=== PATIENT | female | born 1960 | race Caucasian/White ===

== ENCOUNTER 2023-11-08 06:20 | Day surgery (SDC) | payer OTHER ==
[2023-11-08] MEDS ORDERED: Ringers Lactate 1,000 ML IV ONE (06:58)
[2023-11-08] MEDS ORDERED: NS 0.9% VIAL 20 ML ONE (08:01)
[2023-11-08] MEDS: CEFAZOLIN SODIUM 1 GM/VIAL ONE (08:15)
[2023-11-08] MEDS ORDERED: MIDAZOLAM HCL 2 MG/2 ML INJ ONE (08:17)
[2023-11-08] MEDS: HEPARIN 5000 UNIT/ML 1 ML VIAL ONE (08:17)
[2023-11-08] MEDS ORDERED: FENTANYL CITR 100 MCG/2 ML ONE (08:17)
[2023-11-08] MEDS ORDERED: LIDOCAINE 2% MPF 5 ML VIAL ONE (08:17)
[2023-11-08] MEDS ORDERED: propofoL 200 MG/20 ML VIAL IV ONE (08:17)
[2023-11-08] MEDS ORDERED: SUCCINYLCHOLINE 20 MG/ML (10 ML) IV ONE (08:23)
[2023-11-08] MEDS ORDERED: EPHEDRINE SULF 50 MG/ML VIAL ONE (08:51)
[2023-11-08] MEDS ORDERED: dexAMETHasone 4 MG/ML VIAL ONE (09:14)
[2023-11-08] MEDS ORDERED: ONDANSETRON 4 MG/2 ML VIAL ONE (09:14)
--- NOTE | 2023-11-08 09:26 | P.BOP ---
Preoperative diagnosis: colorectal cancer, chemotx Postoperative diagnosis: same Primary procedure: 1. Placement of Portacath Secondary procedure: 2. Interpretation of fluoroscopy Other procedure(s): 3. Left neck ultrasound Estimated blood loss: <1cc Specimen: none Findings: as above Anesthesia: General Implants: single lumen portacath left subclavian Transferred to: Recovery Room Condition: Good
[2023-11-08] MEDS: FENTANYL CITR 100 MCG/2 ML ONE (09:49)
--- NOTE | 2023-11-08 10:06 | RAD REPORT ---
EXAM DESCRIPTION: RAD - Chest Single View - 11/08/2023 10:01 am CLINICAL HISTORY: S/p port a cath insertion Chest pain. COMPARISON: Chest Pa And Lat (2 Views) dated 10/22/2023; CHEST SINGLE VIEW dated 11/29/2007; CHEST PA A ND LAT 2 VIEW dated 11/17/2007 FINDINGS: Portable technique limits examination quality. Left-sided port catheter is in place with tip in the SVC. No postprocedure pneumothorax. Mild interst itial prominence is present bilaterally. The heart is upper limit normal in size. IMPRESSION: No postprocedure pneumothorax is seen.
[2023-11-08] MEDS: CODEINE 30MG/APAP 300MG TAB ONE (10:37)
--- NOTE | 2023-11-08 11:06 | RAD REPORT ---
EXAM DESCRIPTION: RAD - Fluoroscopy <1 Hour - 11/08/2023 11:02 am CLINICAL HISTORY: Venous catheter insertion. PORT A CATH INSERTION- LEFT SIDE COMPARISON: US. GUIDANCE FOR NDL PLACE. dated 06/10/2011 FINDINGS: Fluoroscopic imaging is submitted from placement of a venous catheter. Details of the pro cedure not available. Fluoroscopy time: 0.5 minutes
[2023-11-08 11:25] VITALS: BP 144/74; TEMP 97; O2SAT 98
--- NOTE | 2023-11-08 14:51 | EKG ---
Test Date: 2023-11-08 Test Time: 06:48:39 Cell Operation Supervisor: ISIDRA MEASUREMENT RESULTS: Intervals: Rate: 70 MI: 140 QRSD: 84 QT: 376 QTc: 406 [place]: P: 65 MI: 140 QRS: 50 T: 56 INTERPRETIVE STATEMENTS: Normal sinus rhythm Normal ECG Compared to ECG 11/17/2007 06:04:41 No significant changes Electronically Signed On 11-08-23 14:50:28 CDT by Anthony Naranjo
--- NOTE | 2023-11-08 20:20 | OP ---
Date of Procedure: 11/08/2023 Surgeon: Landon Rossi MD Preoperative Diagnosis: Colorectal cancer, in need of chemotherapy. Postoperative Diagnosis: Colorectal cancer, in need of chemotherapy. Procedures: 1.Placement of a Port-A-Cath, left subclavian vein. 2.Interpretation of fluoroscopy. 3.Right neck and subclavian ultrasound. Estimated Blood Loss: Less than 1 cc. Specimen: None. Findings: A compressible venous system. Anesthesia: General plus local. Implant: A single-lumen Port-A-Cath. Indications: This is the case of a 63-year-old patient in need of chemotherapy, so she was sent to m y office for placement of a Port-A-Cath. The benefits, alternatives, and risks of placement of Port- A-Cath fully explained, which include, but not limited to, infection, bleeding, damage to adjacent st ructures, anesthesia complication, pneumothorax, hemothorax, pericardiac tamponade, breaking of the c atheter, endocarditis, PE, DVT, ID, and even . She also understands this may not relieve any sy mptoms. She might need more than one surgical intervention. She understands the importance of maint enance, importance of making sure it is flushed properly and she was advised to follow up with the [facility] and if she is not using the Port-A-Cath to remove the Port-A-Cath as soon as possible. She understood, signed a consent. Description Of Procedure: The patient was brought to the operating room, placed in supine position. Anesthesia was done without complication. A time-out was called. Left chest and neck were prepped and draped in a sterile fashion. The patient was placed in Trendelenburg position. After the area w as prepped and draped in a sterile fashion, we proceeded to do an ultrasound to make sure we had viab le blood vessels. Subclavian and veins seemed to be viable. At that moment, we introduced an 18-gau ge needle with the patient in Trendelenburg position and after time-out in the left subclavian base o f the first attempt, guidewire was passed through using fluoroscopy and guided into superior vena cav a. A dilator was placed under fluoroscopy and a catheter was placed in and an introducer kit was rem stuart. We made an incision in the left upper chest and created a pocket and then we tunneled this cat heter underneath the skin to meet that new incision. We cut it to proper size and connected that to the Port-A-Cath using the power cutting machine operator's specification and secured it in place with 3-0 chromic. Wou nds once again checked with the fluoroscopy. We made sure proper placement. Then, the subcutaneous tissue was closed with 3-0 chromic and Steri-Strip was placed on top. Patient brought back to normal position. Patient was sent to recovery room in stable condition. JYOTHI/JUANY Voice ID: [id number] Report ID: [id number]
--- NOTE | 2023-11-08 20:50 | DS ---
Date of Discharge: 11/08/2023 Diagnosis: Colorectal cancer, chemotherapy planned. Procedure: Placement of Port-A-Cath, interpretation of fluoroscopy, left neck ultrasound and left mcnally bclavian ultrasound. Disposition: Home. Activity: As tolerated. No heavy lifting. Plan: Follow up in my office in 1 week. Call for appointment at [phone]. Keep area dry for 48 phan rs, then may shower. Keep Steri-Strips intact. Patient will have an x-ray before leaving and review . JYOTHI/JUANY Voice ID: [id number] Report ID: [id number]
== END 2023-11-08 11:05 | disposition home or self-care (01) ==
LOC: OR 06:20
PROVIDERS: ATTEND Surgery
PROC: 0JH60WZ Insertion of Totally Implantable Vascular Access Device into Chest Subcutaneous Tissue and Fascia, Open Approach (ICD-10-PCS; principal; 2023-11-08 08:30)
DX: C21.1 Malignant neoplasm of anal canal (principal); I10 Essential (primary) hypertension; E78.00 Pure hypercholesterolemia, unspecified; G47.30 Sleep apnea, unspecified; E05.90 Thyrotoxicosis, unspecified without thyrotoxic crisis or storm
CPT/HCPCS: 93005; 71045; 76000; 36561; J1644 ×2; A4216; J2704; J1100; J2001; J2250; J3010 ×2; J2405; J7120; J0690

== ENCOUNTER 2024-06-28 08:24 | Day surgery (SDC) | payer BC ==
--- NOTE | 2024-06-28 08:48 | RAD REPORT ---
EXAMINATION: TWO VIEW CHEST XR CLINICAL INDICATION: Pre-op pending removal of port-a-cath TECHNIQUE: 2 views of the chest was performed. COMPARISON: 11/08/2023 FINDINGS: The lungs are well inflated and clear. The heart is normal in size. No displaced fractures evident. L eft-sided port catheter is tip in SVC. IMPRESSION: No acute or significant abnormalities.
[2024-06-28] MEDS: Ringers Lactate 1,000 ML IV ONE (09:00)
[2024-06-28] MEDS ORDERED: ONDANSETRON 4 MG/2 ML VIAL ONE (09:47)
[2024-06-28] MEDS ORDERED: LIDOCAINE 2% MPF 5 ML VIAL ONE (09:47)
[2024-06-28] MEDS ORDERED: FENTANYL CITR 100 MCG/2 ML ONE (09:47)
[2024-06-28] MEDS ORDERED: propofoL 200 MG/20 ML VIAL IV ONE (09:47)
[2024-06-28] MEDS ORDERED: CEFAZOLIN SODIUM 1 GM/VIAL ONE (09:56)
[2024-06-28] MEDS ORDERED: dexAMETHasone 4 MG/ML VIAL ONE (09:56)
[2024-06-28] MEDS ORDERED: EPHEDRINE SULF 50 MG/ML VIAL ONE (09:57)
--- NOTE | 2024-06-28 10:19 | P.BOP ---
Preoperative diagnosis: colorectal cancer Postoperative diagnosis: same Primary procedure: Removal of portacath Estimated blood loss: <10cc Specimen: intact portacath Findings: as above Anesthesia: General Complications: None Transferred to: Recovery Room Condition: Good
--- NOTE | 2024-06-28 11:27 | EKG ---
Test Date: 2024-06-28 Test Time: 09:11:54 Vp Information Technology: BENNETT MEASUREMENT RESULTS: Intervals: Rate: 79 ME: 136 QRSD: 78 QT: 366 QTc: 419 [place]: P: 72 ME: 136 QRS: 69 T: 72 INTERPRETIVE STATEMENTS: Normal sinus rhythm Normal ECG Compared to ECG 11/08/2023 06:48:39 No significant changes Electronically Signed On 06-28-24 11:26:59 BUSINESS PROCESS SPECIALIST by Kiet Ram
[2024-06-28 13:10] VITALS: BP 124/80; O2SAT 94
[2024-06-28 13:13] VITALS: TEMP 97
--- NOTE | 2024-06-28 22:49 | OP ---
Date of Procedure: 06/28/2024 Surgeon: Landon Rossi MD Preoperative Diagnosis: Colorectal cancer. Postoperative Diagnosis: Colorectal cancer. Procedure: Removal of Port-A-Cath. Estimated Blood Loss: Less than 10 cc. Specimen: Intact Port-A-Cath. Anesthesia: General plus local. Indication: This is the case of a 64-year-old patient with no need for Port-A-Cath anymore since she finished her chemotherapy. The benefits, alternatives, and risks of removal were fully explained, w hich included, but not limited to, infection, bleeding, damage to adjacent structures, anesthesia com plication, PE, [place], and even . She also understands this may not relieve symptoms. She might ne ed more than one surgical intervention. She understood and signed a consent. Procedure In Detail: The patient was brought to the operating room, placed in supine position. Anes thesia was done without complication. Time-out was called. Left chest was prepped and draped in a s terile fashion. Incision was made where the patient had Port-A-Cath. Port-A-Cath was identified, re leased from the subcutaneous tissue, and pulled by gentle traction putting pressure on the insertion site for about 10 to 15 minutes. Port-A-Cath came out intact. The subcutaneous tissue was closed wi th 3-0 chromic and the skin in a subcuticular fashion with 3-0 chromic and Steri-Strips on top. Spon ge count and instrument counts were correct. The patient tolerated procedure well. The patient was sen t to recovery in stable condition. JYOTHI/JUANY Voice ID: [id number] Report ID: [id number]
--- NOTE | 2024-06-28 22:54 | DS ---
Date of Discharge: 06/28/2024 Diagnosis: Colorectal cancer. Procedure: Removal of Port-A-Cath. Condition: Stable. Disposition: Home. Activity: As tolerated. No heavy lifting. Discharge Instructions: Follow up in my office in 1 week. Call for appointment [phone]. Keep area dry for 48 hours, then may shower. Keep Steri-Strips intact. JYOTHI/JUANY Voice ID: [id number] Report ID: [id number]
== END 2024-06-28 11:48 | disposition home or self-care (01) ==
LOC: OR 08:24
PROVIDERS: ATTEND Surgery
PROC: 0JPT0WZ Removal of Totally Implantable Vascular Access Device from Trunk Subcutaneous Tissue and Fascia, Open Approach (ICD-10-PCS; principal; 2024-06-28 10:15)
DX: Z85.038 Personal history of other malignant neoplasm of large intestine (principal); Z92.21 Personal history of antineoplastic chemotherapy
CPT/HCPCS: 93005; 88300; 71046; 36590; J2704; J1100; J2003; J3010; J2405; J7120; J0690

== ENCOUNTER 2025-01-16 00:21 | Emergency (ER) | payer BC ==
--- OUTSIDE RECORDS SUMMARY | 2025-01-16 00:26 | XMS REPORT | Continuity of Care Document ---
Author Name Unknown Address [address] [facility] [address] [place] [address] Organization [facility] [place] Address [address] [facility] [address] [place] [address] Care Team Providers Care [employer] Paralegal Name Role Phone Seda Valdez Attending Clinician Unavailable Jett Garcia Attending Clinician Unavailable Elaine Viera Attending Clinician Unavailable Payers Payer Name Policy Type Policy Number Effective Date Expirati on Date Source ENTRUST CLAIMS TEAM [id number] [facility] Problems Condition Name Condition Details Condition Category Status Onset Date Resolution Date Last Treatment Date Treating Clinician Comments Source Cigarette smoker Cigarette smoker Problem [facility] 391126223 Status post arthroscop y of left knee Problem [facility] [id number] Pain, joint, knee, left Problem [facility] [id number] Complex tear of medial meniscus of left knee as current injury, initial encounter Problem [facility] Hypothyroi dism Hypothyroi dism, adult Problem [facility] [id number] Obstructiv e sleep apnea syndrome Problem [facility] 04637084 Essential (primary) hypertensi on Problem [facility] 369427220 Prediabete s Problem [facility] 377935861 Mixed hyperlipid emia Problem [facility] 813471856 Tobacco abuse counseling Problem [facility] 864154096 Abnormal renal function test Problem [facility] 58840102 Hyperglyce zander Problem [facility] [id number] RLS (restless legs syndrome) Problem 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 Nutritiona l anaemia Other specified nutritiona l anemias Problem [facility] Hyperlipid emia Other hyperlipid emia Problem 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 Social History Social Habit Start Date Stop Date Quantity Comments Source History of Tobacco Use [facility] Sex Assigned At [facility] Smoking Status Start Date Stop Date Source Never Smoker [facility] Current Smoker 2024-02-17 00:00:00 [facility] Medications Ordered Medication Name Filled Medication Name Start Date Stop Date Current Medication? Ordering Clinician Indication Dosage Frequency Signature (SIG) Comments Components Source Levothyroxi ne Sodium 137 MCG Levothyroxi ne Sodium 137 MCG 02-17 00:00: 00 No QD Levothyrox ine Sodium 137 MCG Rosuvastati n Calcium 20 mg Rosuvastati n Calcium 20 mg No 1{table t} BID Rosuvastat in Calcium 20 mg Lisinopril 10 MG Lisinopril 10 MG No 1{table t} QD Lisinopril 10 MG Immunizations Ordered Immunization Name Filled Immunization Name Date Status Comments Source FluAD FluAD Unknown Completed [facility] FluAD FluAD Unknown Completed [facility] Flu[facility] FluAD Unknown Completed [facility] Flu[facility] FluAD Unknown Completed [facility] Flu[facility] FluAD Unknown Completed [facility] Flu[facility] FluAD Unknown Completed [facility] Flu[facility] FluAD Unknown Completed [facility] Flu[facility] FluAD Unknown Completed [facility] FluAD FluAD Unknown Completed [facility] FluAD FluAD Unknown Completed [facility] FluAD FluAD Unknown Completed [facility] FluAD FluAD Unknown Completed [facility] Vital Signs Vital Name Observation Time Observation Value Comments Sergo martínez height 2024-10-09 15:00:00 64 [in_i] Com[facility] n [facility] weight 2024-10-09 15:00:00 191.6 [lb_av] Co mmon [facility] temperature 2024-10-09 15:00:00 98.2 [degF] Com [facility] bmi 2024-10-09 15:00:00 32.88 kg/m2 Comm on [facility] oximetry 2024-10-09 15:00:00 96 % [facility] respiratory rate 2024-10-09 15:00:00 16 /min [facility] blood pressure systolic 2024-10-09 15:00:00 132 mm[Hg] Common [facility] blood pressure diastolic 2024-10-09 15:00:00 78 mm[Hg] Common [facility] height 2024-06-09 10:40:00 64 [in_i] Commo n [facility] weight 2024-06-09 10:40:00 184 [lb_av] Comm on [facility] temperature 2024-06-09 10:40:00 97.7 [degF] Com [facility] bmi 2024-06-09 10:40:00 31.58 kg/m2 Comm on [facility] oximetry 2024-06-09 10:40:00 98 % [facility] respiratory rate 2024-06-09 10:40:00 16 /min [facility] blood pressure systolic 2024-06-09 10:40:00 135 mm[Hg] [facility] diastolic 2024-06-09 10:40:00 71 mm[Hg] [facility] height 2024-02-17 16:20:00 64 [in_i] Commo n [facility] weight 2024-02-17 16:20:00 180 [lb_av] Comm on [facility] bmi 2024-02-17 16:20:00 30.89 kg/m2 Comm on [facility] height 2024-02-07 14:40:00 64 [in_i] Commo n [facility] weight 2024-02-07 14:40:00 180.0 [lb_av] Co mmon [facility] temperature 2024-02-07 14:40:00 97.7 [degF] Com mon [facility] bmi 2024-02-07 14:40:00 30.89 kg/m2 Comm on [facility] oximetry 2024-02-07 14:40:00 97 % [facility] respiratory rate 2024-02-07 14:40:00 15 /min [facility] blood pressure systolic 2024-02-07 14:40:00 119 mm[Hg] [facility] blood pressure diastolic 2024-02-07 14:40:00 74 mm[Hg] Common [facility] height 2023-10-06 10:00:00 64 [in_i] Commo n [facility] weight 2023-10-06 10:00:00 198.8 [lb_av] Co mmon [facility] temperature 2023-10-06 10:00:00 98.1 [degF] Com [facility] bmi 2023-10-06 10:00:00 34.12 kg/m2 Comm on [facility] oximetry 2023-10-06 10:00:00 99 % [facility] respiratory rate 2023-10-06 10:00:00 16 /min Common [facility] height 2023-06-29 11:40:00 64 [in_i] Commo n [facility] weight 2023-06-29 11:40:00 190 [lb_av] Comm on [facility] bmi 2023-06-29 11:40:00 32.61 kg/m2 Comm on [facility] height 2023-03-29 14:20:00 64 [in_i] Commo n [facility] weight 2023-03-29 14:20:00 189.2 [lb_av] Co mmon [facility] temperature 2023-03-29 14:20:00 98.1 [degF] Com mon [facility] bmi 2023-03-29 14:20:00 32.47 kg/m2 Comm on [facility] oximetry 2023-03-29 14:20:00 95 % [facility] respiratory rate 2023-03-29 14:20:00 16 /min Common [facility] blood pressure systolic 2023-03-29 14:20:00 131 mm[Hg] [facility] blood pressure diastolic 2023-03-29 14:20:00 70 mm[Hg] [facility] height 2022-09-22 16:00:00 64 [in_i] Commo n [facility] weight 2022-09-22 16:00:00 189.6 [lb_av] Co mmon [facility] temperature 2022-09-22 16:00:00 98.2 [degF] Com mon [facility] bmi 2022-09-22 16:00:00 32.54 kg/m2 Comm on [facility] oximetry 2022-09-22 16:00:00 95 % Commo [facility] respiratory rate 2022-09-22 16:00:00 16 /min Common [facility] blood pressure systolic 2022-09-22 16:00:00 131 mm[Hg] [facility] blood pressure diastolic 2022-09-22 16:00:00 73 mm[Hg] [facility] height 2022-08-24 15:00:00 64 [in_i] Commo n [facility] weight 2022-08-24 15:00:00 194 [lb_av] Comm on [facility] temperature 2022-08-24 15:00:00 98.2 [degF] Com [facility] bmi 2022-08-24 15:00:00 33.3 kg/m2 Commo [facility] blood pressure systolic 2022-08-24 15:00:00 132 mm[Hg] [facility] blood pressure diastolic 2022-08-24 15:00:00 76 mm[Hg] Common [facility] height 2022-07-23 08:00:00 64 [in_i] Commo n [facility] weight 2022-07-23 08:00:00 194 [lb_av] Comm on [facility] temperature 2022-07-23 08:00:00 97.8 [degF] Com [facility] bmi 2022-07-23 08:00:00 33.3 kg/m2 Commo [facility] blood pressure systolic 2022-07-23 08:00:00 130 mm[Hg] [facility] blood pressure diastolic 2022-07-23 08:00:00 80 mm[Hg] [facility] height 2022-07-23 16:00:00 64 [in_i] Commo n [facility] weight 2022-07-23 16:00:00 197.4 [lb_av] Co mmon [facility] temperature 2022-07-23 16:00:00 97.2 [degF] Com [facility] bmi 2022-07-23 16:00:00 33.88 kg/m2 Comm on [facility] oximetry 2022-07-23 16:00:00 98 % Commo [facility] respiratory rate 2022-07-23 16:00:00 17 /min Common [facility] blood pressure systolic 2022-07-23 16:00:00 132 mm[Hg] Common [facility] blood pressure diastolic 2022-07-23 16:00:00 80 mm[Hg] [facility] height 2022-07-13 08:30:00 64 [in_i] Commo n [facility] weight 2022-07-13 08:30:00 193.6 [lb_av] Co mmon [facility] temperature 2022-07-13 08:30:00 97.6 [degF] Com [facility] bmi 2022-07-13 08:30:00 33.23 kg/m2 Comm on [facility] blood pressure systolic 2022-07-13 08:30:00 128 mm[Hg] Common [facility] blood pressure diastolic 2022-07-13 08:30:00 82 mm[Hg] [facility] height 2022-01-06 16:00:00 64 [in_i] Commo n [facility] weight 2022-01-06 16:00:00 196 [lb_av] Comm on [facility] temperature 2022-01-06 16:00:00 97.0 [degF] Com [facility] bmi 2022-01-06 16:00:00 33.64 kg/m2 Comm on [facility] oximetry 2022-01-06 16:00:00 97 % Commo [facility] respiratory rate 2022-01-06 16:00:00 16 /min Common [facility] blood pressure systolic 2022-01-06 16:00:00 114 mm[Hg] Common [facility] blood pressure diastolic 2022-01-06 16:00:00 67 mm[Hg] [facility] height 2021-07-09 16:00:00 64 [in_i] Commo n [facility] weight 2021-07-09 16:00:00 189 [lb_av] Comm on [facility] temperature 2021-07-09 16:00:00 97.9 [degF] Com mon [facility] bmi 2021-07-09 16:00:00 32.44 kg/m2 Comm on [facility] oximetry 2021-07-09 16:00:00 99 % Commo [facility] respiratory rate 2021-07-09 16:00:00 18 /min Common [facility] blood pressure systolic 2021-07-09 16:00:00 114 mm[Hg] Common [facility] blood pressure diastolic 2021-07-09 16:00:00 54 mm[Hg] Common [facility] height 2021-01-06 16:20:00 64 [in_i] Commo n [facility] weight 2021-01-06 16:20:00 194.4 [lb_av] Co mmon [facility] temperature 2021-01-06 16:20:00 98.1 [degF] Com mon [facility] bmi 2021-01-06 16:20:00 33.37 kg/m2 Comm on [facility] oximetry 2021-01-06 16:20:00 96 % Commo [facility] respiratory rate 2021-01-06 16:20:00 18 /min Common [facility] blood pressure systolic 2021-01-06 16:20:00 136 mm[Hg] [facility] blood pressure diastolic 2021-01-06 16:20:00 84 mm[Hg] [facility] Encounters Start Date/Time End Date/Time Encounter Type Admission Type Attending Clinicians Care Facility Care Department Encounter ID Source 2024-06-08 08:50:00 Outpatient Seda ValdezLMLC STLMLC [id number] [facility] 2024-05-31 08:54:00 Outpatient Seda Valdez STLMLC STLMLC [id number] [facility] 2023-11-17 13:54:00 Outpatient Seda Valdez STLMLC STL[facility] [id number] [facility] 2023-10-05 13:20:00 Outpatient Seda Valdez STLMLC STLMLC [id number] [facility] 2022-07-28 09:28:01 Outpatient Seda Valdez STLMLC ST[facility] [id number] [facility] 2022-07-22 12:56:01 Outpatient Seda Valdez STLMLC STLMLC [id number] [facility] 2022-07-13 09:33:01 Outpatient Seda Valdez STLMLC STLMLC [id number] [facility] 2022-07-09 08:37:01 Outpatient Seda Valdez STLMLC STLMLC [id number] [facility] 2022-01-02 09:19:01 Outpatient Seda Valdez STLMLC STLMLC [id number] [facility] 2021-07-07 10:03:01 Outpatient Seda Valdez STLMLC STLMLC [id number] [facility] 2021-06-18 13:37:42 Outpatient Seda Valdez STLMLC STLML[facility] [id number] [facility] 2021-06-18 12:17:31 Outpatient Seda Valdez STLMLC STLMLC [id number] [facility] 2021-06-18 11:58:50 Outpatient Jett Garcia STLMLC STLMLC [id number] [facility] 2021-06-18 11:10:13 Outpatient Elaine Viera STLMLC STLMLC [id number] [facility] 2021-06-18 11:04:59 Outpatient Elaine Viera STLMLC STLMLC [id number] [facility] 2024-10-31 00:00:00 2024-10-31 00:00:00 (TEL) STLMLC STLMLC [id number] [facility] 2024-10-09 00:00:00 2024-10-09 00:00:00 OFFICE VISIT ESTAB PT LEVEL [id number] [facility] 2024-07-26 00:00:00 2024-07-26 00:00:00 (TEL) STLMLC STLMLC [id number] [facility] 2024-06-16 00:00:00 2024-06-16 00:00:00 (TEL) STLMLC STLMLC [id number] [facility] 2024-06-09 00:00:00 2024-06-09 00:00:00 (WELLNESS) Wellness Visit STLMLC STLMLC [id number] [facility] 2024-06-06 00:00:00 2024-06-06 00:00:00 (TEL) STLMLC STLMLC [id number] [facility] 2024-05-31 00:00:00 2024-05-31 00:00:00 (TEL) STLMLC STLMLC [id number] [facility] 2024-05-03 00:00:00 2024-05-03 00:00:00 (TEL) STLMLC STLMLC [id number] [facility] 2024-04-27 00:00:00 2024-04-27 00:00:00 (TEL) STLMLC STLMLC [id number] [facility] 2024-04-06 00:00:00 2024-04-06 00:00:00 (TEL) STLMLC STLMLC [id number] [facility] 2024-02-29 00:00:00 2024-02-29 00:00:00 (TEL) STLMLC STLMLC [id number] [facility] 2024-02-17 00:00:00 2024-02-17 00:00:00 OFFICE VISIT ESTAB PT LEVEL [id number] [facility] 2024-02-16 00:00:00 2024-02-16 00:00:00 (TEL) STLMLC STLMLC [id number] [facility] 2024-02-07 00:00:00 2024-02-07 00:00:00 OFFICE VISIT ESTAB PT LEVEL [id number] [facility] 2023-10-11 00:00:00 2023-10-11 00:00:00 (TEL) STLMLC STLMLC [id number] [facility] 2023-10-07 00:00:00 2023-10-07 00:00:00 (TEL) STLMLC STLMLC [id number] [facility] 2023-10-06 00:00:00 2023-10-06 00:00:00 OFFICE VISIT ESTAB PT LEVEL [id number] [facility] 2023-09-30 00:00:00 2023-09-30 00:00:00 (TEL) STLMLC STLMLC [id number] [facility] 2023-06-29 00:00:00 2023-06-29 00:00:00 OFFICE VISIT ESTAB PT LEVEL [id number] [facility] 2023-06-11 00:00:00 2023-06-11 00:00:00 (TEL) STLMLC STLMLC [id number] [facility] 2023-04-02 00:00:00 2023-04-02 00:00:00 (TEL) STLMLC STLMLC [id number] [facility] 2023-03-29 00:00:00 2023-03-29 00:00:00 OFFICE VISIT ESTAB PT LEVEL [id number] [facility] 2023-02-23 00:00:00 2023-02-23 00:00:00 (TEL) STLMLC STLMLC [id number] [facility] 2022-09-22 00:00:00 2022-09-22 00:00:00 OFFICE VISIT ESTAB PT LEVEL [id number] [facility] 2022-08-24 00:00:00 2022-08-24 00:00:00 NON-BILLAB LE VISIT STLMLC STLMLC [id number] [facility] 2022-08-12 00:00:00 2022-08-12 00:00:00 (TEL) STLMLC STLMLC [id number] [facility] 2022-08-10 00:00:00 2022-08-10 00:00:00 (TEL) STLMLC STLMLC [id number] [facility] 2022-07-29 00:00:00 2022-07-29 00:00:00 (TEL) STLMLC STLMLC [id number] [facility] 2022-07-24 00:00:00 2022-07-24 00:00:00 (TEL) STLMLC STLMLC [id number] [facility] 2022-07-23 00:00:00 2022-07-23 00:00:00 (TEL) STLMLC STLMLC [id number] [facility] 2022-07-23 00:00:00 2022-07-23 00:00:00 (F/U) Follow Up Visit STLMLC STLMLC [id number] [facility] 2022-07-23 00:00:00 2022-07-23 00:00:00 OFFICE VISIT ESTAB PT LEVEL [id number] [facility] 2022-07-13 00:00:00 2022-07-13 00:00:00 OFFICE VISIT NEW PT LEVEL [id number] [facility] 2022-06-24 00:00:00 2022-06-24 00:00:00 (TEL) STLMLC STLMLC [id number] [facility] 2022-01-06 00:00:00 2022-01-06 00:00:00 OFFICE VISIT ESTAB PT LEVEL [id number] [facility] 2021-07-14 00:00:00 2021-07-14 00:00:00 (TEL) STLMLC STLMLC [id number] [facility] 2021-07-09 00:00:00 2021-07-09 00:00:00 OFFICE VISIT ESTAB PT LEVEL [id number] [facility] 2021-01-08 00:00:00 2021-01-08 00:00:00 (TEL) STLMLC STLMLC [id number] [facility] 2021-01-06 00:00:00 2021-01-06 00:00:00 OFFICE VISIT EST PT LEVEL [id number] [facility] 2020-07-08 00:00:00 2020-07-08 00:00:00 Outpatient [facility]LMLC [facility]LMLC [id number] [facility] 2020-04-24 00:00:00 2020-04-24 00:00:00 Outpatient [facility]MLC [facility]LMLC [id number] [facility] 2020-03-22 00:00:00 2020-03-22 00:00:00 Outpatient [facility]C [facility]LMLC [id number] [facility] 2020-01-09 16:11:00 2020-01-09 16:11:00 Outpatient [facility] [id number] [facility] 2019-12-20 16:00:00 2019-12-20 16:00:00 Outpatient [facility] [id number] [facility] 2019-07-18 16:30:00 2019-07-18 16:30:00 Outpatient [facility] [id number] [facility] 2019-07-05 11:30:00 2019-07-05 11:30:00 Outpatient [facility] [id number] [facility] 2019-06-26 10:45:00 2019-06-26 10:45:00 Outpatient [facility] [id number] [facility] Results Test Description Test Time Test Comments Results Result Co mments Source [id number] 00:00:00* Test Item Value Reference Range Interpretation Comme nts TSH (test code = 3016-3) 0.23 mIU/L See_Comment L [Automated messa ge] The system which generated this result transmitted reference range: 0.40-4.50 mIU/L. The reference range was not used to interpret this result as normal/abnormal.
[2025-01-16] MEDS ORDERED: NA CHLORIDE 0.9% 1,000 ML ONE (01:24)
[2025-01-16 01:45] LABS: Absolute Lymphocytes (CBC) 0.8 K/uL (0.7-4.9); Hematocrit 40.0 % (36.0-45.0); Hemoglobin 13.4 g/dL (12.0-15.0); MCH 29.4 pg (27.0-35.0); MCHC 33.5 g/dL (32.0-36.0); MCV 87.6 fL (80-100); MPV 8.4 fL (7.6-11.3); Nucleated RBC Absolute Count 0.0 (0-0); Nucleated Red Blood Cells % 0.0 % (0-0); RBC Red Blood Cell Count 4.56 M/uL (3.86-4.86); White Blood Count 8.10 thou/uL (4.3-10.9)
[2025-01-16 01:47] LABS: D-Dimer 5.495 FEUug/mL (0-0.500)
[2025-01-16] MEDS ORDERED: ONDANSETRON 4 MG/2 ML VIAL ONE (01:54)
[2025-01-16] MEDS ORDERED: FENTANYL CITR 100 MCG/2 ML ONE ×2 (01:54→05:16)
[2025-01-16 01:55] LABS: AST/SGOT 15 U/L (15-37); Albumin 3.1 g/dL (3.4-5.0); Albumin/Globulin Ratio 0.8 (1.1-1.8); Alkaline Phosphatase 87 U/L (45-117); Anion Gap 9.6 mEq/L (5.0-15.0); BUN Blood Urea Nitrogen 30 mg/dL (7-18); Globulin 4.0 g/dL (2.3-3.5); Glucose Level 132 mg/dL (74-106); Influenza A Ag Negative; Influenza B Ag Negative; Lipase 35 U/L (13-75); Potassium 3.6 mEq/L (3.5-5.1); SARS-CoV-2 Antigen Rapid Res Negative (Negative)
[2025-01-16 01:56] LABS: ALT/SGPT < 14 U/L (13-56)
--- NOTE | 2025-01-16 03:37 | ER ---
Nurse's Notes [facility] Name: Radha Villeda Age: 64 yrs Sex: Female : 1960 Arrival Date: 01/16/2025 Time: 00:21 Bed 16 Private MD: Diagnosis: Pulmonary embolism without acute cor pulmonale-bilateral Presentation: 01/16 00:31 Chief complaint: Patient states: FEVER X3 DAYS AND LUQ PAIN. NO N/V/D. Coronavirus jj7 screen: At this time, the client does not indicate any symptoms associated with coronavirus-19. Ebola Screen: No symptoms or risks identified at this time. Initial Sepsis Screen: Does the patient meet any 2 criteria? No. Patient's initial sepsis screen is negative. Does the patient have a suspected source of infection? No. Patient's initial sepsis screen is negative. Risk Assessment: Do you want to hurt yourself or someone else? Patient reports no desire to harm self or others. Note MOTRIN 600MG \T\2029. Onset of symptoms was January 12, 2025. 00:31 Method Of Arrival: Ambulatory j 00:31 Acuity: KEITH 3 jj7 Triage Assessment: 00:36 General: Appears in no apparent distress. uncomfortable, Behavior is calm, cooperative, jj7 appropriate for age. Pain: Complains of pain in left upper quadrant. Cardiovascular: No deficits noted. Respiratory: Reports shortness of breath WITH COUGHING, SNEEZING the patient has mild shortness of breath. Respiratory: Onset: The symptoms/episode began/occurred SINCE WEDNESDAY. GI: Abd is soft X 4 quads Abdomen is tender to palpation in left upper quadrant. Historical: - Allergies: 00:36 No Known Allergies; jj7 - PMHx: 00:36 RECTAL CANCER; Hypertensive disorder; Hypothyroidism; HYPERLIDIPEMIA; jj7 - PSHx: 00:36 Tonsillectomy; TUBIAL LIGATION; section; CARPAL TUNNEL; LEFT KNEE; RIGHT FOOT; jj7 - Immunization history:: Adult Immunizations not up to date. - Infectious Disease History:: Denies. - Social history:: Smoking status: Patient/guardian denies using tobacco, the patient reports quitting approximately 9 years ago, Patient uses alcohol, but reports only rare drinking. Patient/guardian denies using street drugs, IV drugs. Screenin:30 [facility] ED Fall Risk Assessment (Adult) History of falling in the last 3 months, kt5 including since admission No falls in past 3 months (0 pts) Confusion or Disorientation No (0 pts) Intoxicated or Sedated No (0 pts) Impaired Gait No (0 pts) Mobility Assist Device Used Yes (1 pt) Altered Elimination No (0 pt) Score/Fall Risk Level 0 - 2 = Low Risk Oriented to surroundings, Maintained a safe environment. Abuse screen: Denies threats or abuse. Denies injuries from another. Nutritional screening: No deficits noted. Tuberculosis screening: No symptoms or risk factors identified. Assessment: 01:18 General: tech at bs pcxr. kt5 01:30 General: Appears in no apparent distress. uncomfortable, Behavior is calm, cooperative, kt5 appropriate for age. Pain: Complains of pain in right breast Pain radiates to anterior aspect of right upper chest and mid-sternal area Pain currently is 6 out of 10 on a pain scale. Quality of pain is described as sharp, Pain began gradually, Is continuous. Neuro: No deficits noted. [place] Agitation-Sedation Scale (RASS): 0 - Alert and Calm Level of Consciousness is awake, alert, obeys commands, Oriented to person, place, time, Cardiovascular: Reports chest pain, shortness of breath, Heart tones S1 S2 present Capillary refill < 3 seconds Clubbing of nail beds is absent JVD is absent Pulses are all present. Edema is absent. Rhythm is sinus rhythm Chest pain sharp cp under left breat with sob. Respiratory: Reports shortness of breath on exertion Airway is patent Trachea midline Respiratory effort is even, unlabored, Respiratory pattern is regular, symmetrical, Breath sounds are clear bilaterally. GI: No deficits noted. No signs and/or symptoms were reported involving the gastrointestinal system. Abdomen is flat, non-distended, Bowel sounds present X 4 quads. Abd is soft and non tender X 4 quads. : No deficits noted. No signs and/or symptoms were reported regarding the genitourinary system. EENT: No deficits noted. Derm: No deficits noted. Musculoskeletal: No deficits noted. No signs and/or symptoms reported regarding the musculoskeletal system. 01:44 Reassessment: Patient appears in no apparent distress at this time. Patient is alert, kt5 oriented x 3, equal unlabored respirations, skin warm/dry/pink. Patient states symptoms have improved. 02:11 Reassessment:. kt5 03:18 Reassessment: Patient appears in no apparent distress at this time. Patient is alert, kt5 oriented x 3, equal unlabored respirations, skin warm/dry/pink. Patient denies pain at this time. Patient states feeling better. Patient states symptoms have improved. 04:39 Reassessment: Patient appears in no apparent distress at this time. Patient is alert, kt5 oriented x 3, equal unlabored respirations, skin warm/dry/pink. Patient denies pain at this time. Patient states feeling better. Patient states symptoms have improved. 04:58 General: report a albino rn, all questions answered. kt5 05:20 Reassessment: Patient appears in no apparent distress at this time. No changes from kt5 previously documented assessment. Patient is alert, oriented x 3, equal unlabored respirations, skin warm/dry/pink. Patient denies pain at this time. Patient states feeling better. Patient states symptoms have improved. Vital Signs: 00:31 BP 112 / 77; Pulse 115; Resp 20; Temp 98.8; Pulse Ox 99% ; Weight 90.72 kg; Height 5 jj7 ft. 2 in. ; Pain 9/10; 01:34 Pulse 99; Resp 20; Pulse Ox 100% ; kt5 01:44 BP 105 / 68; Pulse 100; Resp 18 S; Pulse Ox 97% on R/A; kt5 03:18 BP 103 / 61; Pulse 92; Resp 18 S; Pulse Ox 97% on R/A; kt5 04:10 Weight 93.44 kg (M); al5 04:39 BP 105 / 89; Pulse 104; Resp 18 S; Pulse Ox 100% on R/A; kt5 05:20 BP 108 / 80; Pulse 106; Resp 18; Temp 98.2(O); Pulse Ox 96% ; kt5 00:31 Body Mass Index 36.58 (93.44 kg, 157.48 cm) jj7 00:31 Pain Scale: Adult j7 ED Course: 00:27 Patient arrived in ED. gm2 00:36 Triage completed. jj7 00:36 Arm band placed on right wrist. jj7 00:37 Tata Last, ALEXEY is PHCP. kb 00:37 Glynn Steward MD is Attending Physician. kb 01:04 Rosario Butt, DEISI is Primary Nurse. kt5 01:14 PHCP role handed off by Tata Last FNP-C cp 01:14 Glynn Lance PA-C is PHCP. cp 01:16 Inserted saline lock: 20 gauge in right forearm, using aseptic technique. Blood kt5 collected. Flushed with 10 mL NS. 01:17 D-Dimer Sent. kt5 01:17 Troponin HS Sent. kt5 01:17 CBC with Diff Sent. kt5 01:17 CMP Sent. kt5 01:17 Lipase Sent. kt5 01:18 COVID-19 Ag + Flu A+B Ag Sent. kt5 01:30 Patient has correct armband on for positive identification. Placed in gown. Bed in low kt5 position. Call light in reach. Side rails up X 1. Client placed on continuous cardiac and pulse oximetry monitoring. NIBP monitoring applied. communication coordinator on. Door closed. Noise minimized. Warm blanket given. Pillow given. 02:26 XRAY Chest (1 view) In Process Unspecified. EDMS 02:31 CT Chest For PE Angio In Process Unspecified. EDMS 03:35 Tristan Mcallister MD is Hospitalizing Provider. cp 03:58 Initiated transfer with [place] [facility]. rv1 04:26 Doc to Doc with hospitalist at [facility]. rv1 04:[address] Dubose to [facility] Rm 425. rv1 04:54 [facility] to transfer. rv1 05:26 Patient transferred, IV remains in place. kt5 05:27 Provided Education on: medication and need for transfer. kt5 05:27 No provider procedures requiring assistance completed. kt5 Administered Medications: 01:26 Drug: NS 0.9% IV 1000 ml IV at 1 bolus Per protocol; to be given as a bolus over 60 kt5 minutes Route: IV; Rate: 1 bolus; Site: left forearm; 03:21 Follow up: Response: No adverse reaction; IV Status: Completed infusion; IV Intake: kt5 1000ml 05:24 Follow up: Response: No adverse reaction; IV Status: Completed infusion; IV Intake: kt5 1000ml 02:22 Drug: Ondansetron IVP 4 mg IVP once; over 2 minutes Route: IVP; Site: left forearm; kt5 05:24 Follow up: Response: No adverse reaction; Nausea is decreased kt5 02:25 Drug: fentaNYL (PF) IVP 25 mcg IVP once Route: IVP; Site: left forearm; kt5 05:25 Follow up: Response: No adverse reaction; Pain is decreased kt5 04:36 Drug: Heparin (DVT/PE- Bolus per protocol) - HEParin IVP 80 units/kg IVP once; Max kt5 8,000 units {Co-Signature: al5 (Jannie Londono RN).} {Note: per protocol.} Route: IVP; Site: right antecubital; 05:23 Follow up: Response: No adverse reaction kt5 04:37 Drug: Heparin (DVT/PE Drip) 18 units/kg/hr - ([place] [address] units, D5W IV 500 ml) IV kt5 at calculated rate Per protocol; Max initial rate 1800 units/hr {Co-Signature: sho5 (Jannie Londono RN).} Route: IV; Rate: calculated rate; Site: right antecubital; 05:22 Follow up: Response: No adverse reaction kt5 05:24 Follow up: IV Status: Infusion continued upon transfer kt5 04:38 Drug: Zithromax IVPB 500 mg IVPB once over 1 hrs; mix in 250 mL NS Route: IVPB; Infused kt5 Over: 1 hrs; Site: left forearm; 05:22 Follow up: Response: No adverse reaction; IV Status: Infusion continued upon transfer kt5 04:38 Drug: Rocephin IV 1 grams IV at calculated rate once; Given slow IV push per pharmacy kt5 instructions Route: IV; Rate: calculated rate; Site: left forearm; 05:23 Follow up: Response: No adverse reaction kt5 05:28 Follow up: Response: No adverse reaction; IV Status: Completed infusion kt5 05:19 Drug: fentaNYL (PF) IVP 50 mcg IVP once Route: IVP; Site: left antecubital; kt5 05:25 Follow up: Response: No adverse reaction; Pain is decreased kt5 Medication: 01:30 VIS not applicable for this client. kt5 Intake: 03:21 IV: 1000ml; Total: 1000ml. kt5 05:24 IV: 1000ml; Total: 2000ml. kt5 Outcome: 03:36 Decision to Hospitalize by Provider. cp 04:00 ER care complete, transfer ordered by . cp 05:26 Transferred by [facility], Note: kt5 [facility] 05:26 Condition: stable 05:26 Instructed on the need for transfer, 05:27 Patient left the ED. kt5 Signatures: Dispatcher [employer] EDMS Tata Last FNP-C NATURAL DEVELOPER-Glynn Tian PA-C PATyrone Xiao cp, RN RN jj7 Tessy Delarosa rv1 Loni Pendleton gm2 Jannie Londono RN RN al5 Rosario Butt RN RN kt5 Jannie Londono RN al5 Corrections: (The following items were deleted from the chart) 03:26 03:22 Ondansetron IVP 4 mg IVP in left forearm kt5 kt5 03:27 03:21 fentaNYL (PF) IVP 25 mcg IVP in left forearm kt5 kt5 04:38 04:36 Heparin (DVT/PE- Bolus per protocol) - HEParin IVP 7475.2 units IVP in right kt5 antecubital kt5 05:21 05:20 BP 108 / 80; Pulse 106bpm; Resp 18bpm; Pulse Ox 96%; kt5 kt5
--- NOTE | 2025-01-16 03:37 | EDPHYS ---
Physician Documentation [facility] Name: Radha Villeda Age: 64 yrs Sex: Female : 1960 Arrival Date: 01/16/2025 Time: 00:21 Bed 16 Private MD: ED Physician Glynn Steward HPI: 01/16 00:55 This 64 yrs old Female presents to ER via Ambulatory with complaints of Shortness Of kb Breath, LEFT SIDE ABD PAIN. 00:55 Pt is a 64 year old female who presents for left chest pain and fever that started 3 kb days ago. STates she was sitting when the pain started to come on then it became worse and constant. States fever started shortly after. Reports cough, Denies abd pain, n/v/d. . 00:55 The patient has shortness of breath with light activity. cp Historical: - Allergies: 00:36 No Known Allergies; jj7 - PMHx: 00:36 RECTAL CANCER; Hypertensive disorder; Hypothyroidism; HYPERLIDIPEMIA; jj7 - PSHx: 00:36 Tonsillectomy; TUBIAL LIGATION; section; CARPAL TUNNEL; LEFT KNEE; RIGHT FOOT; jj7 - Immunization history:: Adult Immunizations not up to date. - Infectious Disease History:: Denies. - Social history:: Smoking status: Patient/guardian denies using tobacco, the patient reports quitting approximately 9 years ago, Patient uses alcohol, but reports only rare drinking. Patient/guardian denies using street drugs, IV drugs. ROS: 00:49 Constitutional: As per HPI kb Exam: 00:49 Constitutional: This is a well developed, well nourished patient who is awake, alert, kb and in no acute distress. Head/Face: Normocephalic, atraumatic. ENT: Moist Mucous membranes Cardiovascular: Regular rate Respiratory: Respirations even and unlabored. No increased work of breathing. Talking in full sentences Abdomen/GI: Soft, non-tender. No distention Skin: Warm, dry with normal turgor. Normal color. MS/ Extremity: Pulses equal, no cyanosis. Neurovascular intact. Full, normal range of motion. Neuro: Awake and alert, GCS 15, oriented to person, place, time, and situation. 00:49 Chest/axilla: Inspection: normal, Palpation: tenderness, that is moderate, of the left breast, that totally reproduces the patient's complaints, Vital Signs: 00:31 BP 112 / 77; Pulse 115; Resp 20; Temp 98.8; Pulse Ox 99% ; Weight 90.72 kg; Height 5 jj7 ft. 2 in. ; Pain 9/10; 01:34 Pulse 99; Resp 20; Pulse Ox 100% ; kt5 01:44 BP 105 / 68; Pulse 100; Resp 18 S; Pulse Ox 97% on R/A; kt5 03:18 BP 103 / 61; Pulse 92; Resp 18 S; Pulse Ox 97% on R/A; kt5 04:10 Weight 93.44 kg (M); al5 04:39 BP 105 / 89; Pulse 104; Resp 18 S; Pulse Ox 100% on R/A; kt5 05:20 BP 108 / 80; Pulse 106; Resp 18; Temp 98.2(O); Pulse Ox 96% ; kt5 00:31 Body Mass Index 36.58 (93.44 kg, 157.48 cm) [facility] 00:31 Pain Scale: Adult jj7 MDM: 00:37 Medical Screening Exam initiated kb 02:00 Differential diagnosis: Chronic Obstructive Pulmonary Disease pneumonia, Pneumothorax cp pulmonary edema, Pulmonary Embolism Sepsis Unstable Angina. 03:35 Data reviewed: vital signs, nurses notes, lab test result(s), EKG, radiologic studies, cp CT scan, plain films, I have discussed the patient's presentation/case with the attending Emergency Department Physician;. 03:45 Management of patient was discussed with the following: Hospitalist: DR Mcallister who cp requests transfer for consideration of EKOS treatment. 04:05 ED course: attempt to transfer to [facility] but informed patient would be wait cp listed. 04:30 ED course: consult with hospitalist, DR Dubose, at [facility] who will accept cp patient as transfer after discussion. 04:45 I considered the following discharge prescriptions or medication management in the emergency department Medications were administered in the Emergency Department. See MAR. 04:45 Independent interpretation of the following test(s) in the Emergency Department EKG: cp See my EKG interpretation above. Care significantly affected by the following chronic conditions: Hypertension, Cancer. 01/16 00:37 Order name: CBC with Diff; Complete Time: 01:48 kb 01/16 01:48 Interpretation: Normal except: NHI% 78.2; LYM% 9.5. 01/16 00:37 Order name: CMP; Complete Time: 04:25 kb 01/16 02:23 Interpretation: Normal except: CL 109; GLUC 132; BUN 30; GFR 65; ALB 3.1; GLOB 4.0; A/G cp 0.8. 01/16 00:37 Order name: Lipase; Complete Time: 04:25 kb 01/16 03:26 Interpretation: Reviewed. 01/16 00:41 Order name: D-Dimer; Complete Time: 04:25 kb 01/16 01:48 Interpretation: Reviewed. 01/16 00:41 Order name: Troponin HS; Complete Time: 02:23 kb 01/16 02:24 Interpretation: Reviewed. 01/16 00:41 Order name: COVID-19 Ag + Flu A+B Ag; Complete Time: 02:23 kb 01/16 02:24 Interpretation: Reviewed. 01/16 04:05 Order name: Protime (+INR); Complete Time: 04:25 EDMS 01/16 04:05 Order name: PTT, Activated Partial Thromb; Complete Time: 04:25 EDMS 01/16 04:05 Order name: Magnesium; Complete Time: 04:25 EDMS 01/16 00:41 Order name: XRAY Chest (1 view) kb 01/16 01:50 Order name: CT Chest For PE Angio 01/16 00:37 Order name: IV Saline Lock; Complete Time: 01:17 kb 01/16 00:37 Order name: Labs collected and sent; Complete Time: 01:17 kb 01/16 00:41 Order name: Cardiac monitoring; Complete Time: 01:17 kb 01/16 00:41 Order name: EKG - Nurse/Tech; Complete Time: 01:29 kb 01/16 00:41 Order name: O2 Per Protocol; Complete Time: 05:28 kb 01/16 00:41 Order name: O2 Sat Monitoring; Complete Time: 01:17 kb Administered Medications: 01:26 Drug: NS 0.9% IV 1000 ml IV at 1 bolus Per protocol; to be given as a bolus over 60 kt5 minutes Route: IV; Rate: 1 bolus; Site: left forearm; 03:21 Follow up: Response: No adverse reaction; IV Status: Completed infusion; IV Intake: kt5 1000ml 05:24 Follow up: Response: No adverse reaction; IV Status: Completed infusion; IV Intake: kt5 1000ml 02:22 Drug: Ondansetron IVP 4 mg IVP once; over 2 minutes Route: IVP; Site: left forearm; kt5 05:24 Follow up: Response: No adverse reaction; Nausea is decreased kt5 02:25 Drug: fentaNYL (PF) IVP 25 mcg IVP once Route: IVP; Site: left forearm; kt5 05:25 Follow up: Response: No adverse reaction; Pain is decreased kt5 04:36 Drug: Heparin (DVT/PE- Bolus per protocol) - HEParin IVP 80 units/kg IVP once; Max kt5 8,000 units {Co-Signature: al5 (Jannie Londono RN).} {Note: per protocol.} Route: IVP; Site: right antecubital; 05:23 Follow up: Response: No adverse reaction kt5 04:37 Drug: Heparin (DVT/PE Drip) 18 units/kg/[place] - ([place] [address] units, D5W IV 500 ml) IV kt5 at calculated rate Per protocol; Max initial rate 1800 units/hr {Co-Signature: al5 (Jannie Londono RN).} Route: IV; Rate: calculated rate; Site: right antecubital; 05:22 Follow up: Response: No adverse reaction kt5 05:24 Follow up: IV Status: Infusion continued upon transfer kt5 04:38 Drug: Zithromax IVPB 500 mg IVPB once over 1 hrs; mix in 250 mL NS Route: IVPB; Infused kt5 Over: 1 hrs; Site: left forearm; 05:22 Follow up: Response: No adverse reaction; IV Status: Infusion continued upon transfer kt5 04:38 Drug: Rocephin IV 1 grams IV at calculated rate once; Given slow IV push per pharmacy kt5 instructions Route: IV; Rate: calculated rate; Site: left forearm; 05:23 Follow up: Response: No adverse reaction kt5 05:28 Follow up: Response: No adverse reaction; IV Status: Completed infusion kt5 05:19 Drug: fentaNYL (PF) IVP 50 mcg IVP once Route: IVP; Site: left antecubital; kt5 05:25 Follow up: Response: No adverse reaction; Pain is decreased kt5 Disposition: 13:33 Co-signature as Attending Physician, Glynn Steward MD I agree with the assessment and rosa maria plan of care. 22:41 Critical Care:. cp Disposition Summary: 01/16/25 04:00 Transfer Ordered Notes: Reason: Higher level of care cp Condition: Stable(01/16/25 04:00) cp Problem: new(01/16/25 04:00) cp Symptoms: have improved(01/16/25 04:00) cp Transfer Location: [facility](01/16/25 04:30) cp Accepting Physician: DR Dubose(01/16/25 05:27) kt5 Diagnosis - Pulmonary embolism without acute cor pulmonale - bilateral(01/16/25 04:00) cp Forms: - Medication Reconciliation Form cp - SBAR form cp Critical care time excluding procedures: 22:41 Critical care time: Bedside Care: 6 minutes, Consultation: 34 minutes. Total time: 40 cp minutes Signatures: Dispatcher [employer] EDMI Tata Last, LUCIO-C ROOM SERVICE WAITER-Glynn Lam MD MD cha Page, Corey, PA-C PA-C Tyrone Fisher, RN RN jj7 Rosario Butt RN RN kt5 Jannie Londono RN al5 Corrections: (The following items were deleted from the chart) 00:38 00:38 CBC+H.LAB.BRZ ordered. EDMI EDMS 00:38 00:38 COMPREHENSIVE METABOLIC PANEL+C.LAB.BRZ ordered. EDMI EDMS 00:38 00:38 LIPASE+C.LAB.BRZ ordered. EDMI EDMS 00:38 00:38 Abdomen Pelvis W Con+CT.RAD.BRZ ordered. EDMI EDMS 00:41 00:41 Chest Single View+RAD.RAD.BRZ ordered. EDMI EDMS 00:42 00:42 COVID-19 Ag + Flu A+B Ag+I.LAB.BRZ ordered. EDMI EDMS 01:50 01:50 Chest For PE Angio+CT.RAD.BRZ ordered. EDMI EDMS 03:59 03:36 Inpatient Admission cp cp 03:59 03:36 Tristan Mcallister cp cp 03:59 03:36 Telemetry/MedSurg (Inpatient) cp cp 03:59 03:36 Stable cp cp 03:59 03:36 new cp cp 03:59 03:36 have improved cp cp 03:59 03:36 Standard cp cp 03:59 03:36 cp cp 03:59 03:36 Pulmonary embolism without acute cor pulmonale cp cp 04:05 03:33 PROTIME (+INR)+COAG.LAB.BRZ ordered. EDMS EDMS 04:05 03:33 PTT, ACTIVATED+COAG.LAB.BRZ ordered. EDMS EDMS 04:05 03:33 MAGNESIUM+C.LAB.BRZ ordered. EDMS EDMS 04:30 04:00 doctor cp cp 04:30 04:00 [facility] cp cp 05:05 04:30 doctor cp cp 05:06 04:30 ED course: consult with hospitalist at [facility] who will accept patient as cp transfer. cp 05:27 05:05 DR Dubose cp kt5
[2025-01-16] MEDS ORDERED: AZITHROMYCIN 500 MG INJ IVPB ONE (04:03)
[2025-01-16] MEDS ORDERED: HEPARIN 5000 UNIT/ML 1 ML VIAL ONE ×2 (04:03→04:21)
[2025-01-16] MEDS ORDERED: CEFTRIAXONE 1000 MG/VIAL ONE (04:03)
[2025-01-16] MEDS ORDERED: NA CHLORIDE 0.9% 250 ML ONE (04:03)
[2025-01-16] MEDS ORDERED: HEPARIN/D5W 25,000 UNIT/500 ML BAG IV ONE (04:04)
[2025-01-16 04:08] LABS: PT Prothrombin Time 12.4 SECONDS (10-13.0); PTT, Activated Partial Thromb 29.4 SECONDS (27.2-37.4); Protime INR 1.1
[2025-01-16 04:13] LABS: Magnesium 2.0 mg/dL (1.6-2.4)
--- NOTE | 2025-01-16 05:21 | RAD REPORT ---
EXAM: CT Angiography Chest With Intravenous Contrast CLINICAL HISTORY: Cough; SOB TECHNIQUE: Axial computed tomographic angiography images of the chest with intravenous contrast. Sagittal and coronal reformatted images were created and reviewed. This CT exam was performed using one or more of the following dose reduction techniques: automated exposure control, adjustment of the mA a nd/or kV according to patient size, and/or use of iterative reconstruction technique. MIP reconstructed images were created and reviewed. COMPARISON: CT Chest dated 06/06/2024 FINDINGS: Artifacts: Motion artifact degrades image quality and limits evaluation of segmental and subsegment al vessels. Pulmonary arteries: Central and segmental right middle, bilateral lower lobe and lingular pulmonary arterial filling defects. Aorta: Mild atherosclerotic disease. No thoracic aortic aneurysm. Lungs and pleural spaces: Peripheral area of consolidation within the inferior aspect of the lingul a. 11 mm right upper lobe nodule on series 501 image 37, series 507 image 68 and series 508 image 45, increased from the prior previously measuring 5 mm. Lingular calcified granulomata. No signific ant effusion. No pneumothorax. Heart: Questionable slight bowing of the interventricular septum in the setting of early right hear t strain. No cardiomegaly. No significant pericardial effusion. Mediastinum: Calcified mediastinal and left hilar lymph nodes. Bones/joints: Mild multilevel spondylosis. T3, T9 and left T11 pedicle, transverse process and lami frances intraosseous hemangiomata again demonstrated. No acute fracture. No dislocation. Soft tissues: Unremarkable. Lymph nodes: See above. Spleen: 5 cm indeterminate masslike area along the anteromedial aspect of the spleen again demonstr ated. IMPRESSION: 1. Bilateral pulmonary embolic disease. No saddle embolus. Questionable early right heart strain. 2. Peripheral area of consolidation within the inferior aspect of the lingula which may reflect foc al infiltrate versus pulmonary infarct. 3. A 11 mm right upper lobe nodule, increased in size from the prior. PET/CT is recommended for fur ther evaluation. 4. 5 cm indeterminate splenic masslike area again demonstrated. Consider nonemergent MR for further characterization. 5. Other findings as above. THIS REPORT CONTAINS FINDINGS THAT MAY BE CRITICAL TO PATIENT CARE: The findings were verbally discus sed via telephone conference with Glynn Lance, PAC on 01/16/2025 3:17 AM CDT. The results were acknowledged and understood. Electronically signed by: Kahlil Ramirez MD 01/16/2025 03:19 AM CDT RP Due to temporary technical issues with the PACS/[employer] reporting system, reports are being jessenia d by the in-house radiologist without review as a courtesy to ensure prompt reporting the interpreting radiologist is fully responsible for the content of the report. Transcribed Date/Time: 01/16/2025 5:21 AM
--- NOTE | 2025-01-16 05:39 | RAD REPORT ---
CLINICAL HISTORY: Chest pain. COMPARISON: CT Chest 06/06/2024. TECHNIQUE: XR CHEST 1 VIEW 01/16/2025 12:41 AM CDT FINDINGS: Cardiac silhouette is normal in size. Lungs are clear without consolidation, atelectasis, mass or sally ma. There is no pleural effusion. There is no pneumothorax. There are no acute osseous findings. IMPRESSION: Clear lungs. Electronically signed by: Surinder Finney MD 01/16/2025 03:11 AM CDT RP Due to temporary technical issues with the PACS/[employer] reporting system, reports are being jessenia d by the in-house radiologist without review as a courtesy to ensure prompt reporting the interpreting radiologist is fully responsible for the content of the report. Transcribed Date/Time: 01/16/2025 5:39 AM
[2025-01-16 09:17] VITALS: BP 108/80; TEMP 98.2; O2SAT 96
== END 2025-01-16 05:27 | disposition short-term general hospital (02) ==
LOC: ER 00:21
DX: I26.99 Other pulmonary embolism without acute cor pulmonale (principal); Z11.52 Encounter for screening for COVID-19
CPT/HCPCS: 93005; 85025; 36415; 83735; 85610; 85379; 85730; 84484; 83690; 80053; 71275; 71045; 87428; Q9967; J1644 ×3; J0456; J3010 ×2; J2405; J7050; J7030; J0696